=== PATIENT | male | born 1980 | race Caucasian/White ===

== ENCOUNTER 2019-07-27 11:53 | Emergency (ER) | payer BC ==
[2019-07-27] MEDS ORDERED: Ondansetron ODT TAB* 4 MG PO ONE (13:54)
[2019-07-27] MEDS ORDERED: NS 0.9% 1000 ML** 2,000 ML IV ONE (13:54)
[2019-07-27] MEDS ORDERED: Ketorolac INJ* 30 MG/ML 1 ML VIAL IV ONE (13:54)
--- NOTE | 2019-07-27 13:55 | ED ---
Headache - HPI Summary HPI Summary: The patient is a 38 y/o M presenting to [facility] with a chief complaint of two sudden onset severe occipital headaches occurring around 1130am on 07/25/19 and 1140am today 07/27/19 with sudden onset, at work. He reports that he had been at a wedding in [place], [place] over this past week and had more alcohol than usual on 07/23/19 and 07/24/19. He went to bed at 0400 on 07/25/19, and then woke up at [address] back to [place]. During the drive, he had an abrupt onset occipital headache about 4 hours after starting to drive, so his was driving instead, and he had to hold his head for about 1.5 hours before the pain started to subside with Ibuprofen use. The pain continued throughout the day and into the next to which he was continuing use of Ibuprofen for pain control, with last use at 1600 yesterday until today when he had another sudden onset occipital LINDSAY at 1140am. 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 He came to the ED soon after, as the pain continued. Currently, his pain has decreased to 3/10 in severity. The pain radiates from the occipital region into the posterior neck, resulting in stiffness and soreness. He denies any visual changes including blurred vision, photophobia, loss of vision, or diplopia. He also denies sinus congestion or drainage, dental pain, generalized weakness, or slurred speech. 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 Since then, the back pain has gradual been alleviated throughout the following week with use of Ibuprofen and a backup administrative coordinator, and there is not any pain with flexion, but now he is experiencing the abrupt headaches with neck pain. He has experienced headaches previously but not to this severity. He notes that he had been going to a chiropractor but hasn't been there since spring 2019. He has rx for Metoprolol without official dx of HTN so he does not take the medication. PMHx: PACs, GERD. Fhx of sudden age 34 in grandmother with unknown dx. Nonsmoker , rare EtOH, no substance use. Vital signs while in room: HR 98 bpm, BP 152/99 mmHg, O2 sat 94% [1405] Second set of vital signs while in room: HR 94 bpm, BP 152/106 mmHg, O2 sat 92% [1415] Home Medications Medication Instructions Recorded Confirmed Type Multivitamin 1 tab PO DAILY 07/27/19 07/27/19 History Omeprazole CAP (NF) 40 mg PO DAILY 07/27/19 07/27/19 History Probiotic 1 cap PO DAILY 07/27/19 07/27/19 History Vitamin C TAB* 1,000 mg PO DAILY 07/27/19 07/27/19 History - History Of Current Complaint Chief Complaint: EDHeadache Stated Complaint: SEVERE HEADACHES PER PT Time Seen by Provider: 07/27/19 14:05 Hx Obtained From: Patient Onset/Duration: Sudden Onset, Started hours ago - most recent episode at 1140 , Still Present Initially Headache Was: "Worst Headache Ever", Initial Pain Scale(0-10)= - 9-10 , Severe Currently Pain Is: Current Pain Scale(0-10)= - 3, Mild Timing: Constant, Hours Character: Sharp Location of Headache: Occipital Radiates to: posterior neck Aggravating Factor: Nothing Allevating Factors: Position Change - holding head, Other (Noted In Comments) - Ibuprofen with mild relief Associated Signs And Symptoms: Neck Pain, Neck Stiffness, Other (Noted In Comments) - Negative: visual changes (photophobia, blurred vision, loss of vision, dipolopia), sinus congestion or drainge, dental pain, current back pain , nausea - Risk Factors SAH Risk Factors: Family History - possibly grandmother at age 34 - Allergies/Home Medications Allergies/Adverse Reactions: Allergies Allergy/AdvReac Type Severity Reaction Status Date / Time No Known Allergies Allergy Verified 07/27/19 13:39 Home Medications: Home Medications Multivitamin 1 tab PO DAILY 07/27/19 [History Confirmed 07/27/19] Omeprazole CAP (NF) 40 mg PO DAILY 07/27/19 [History Confirmed 07/27/19] Probiotic 1 cap PO DAILY 07/27/19 [History Confirmed 07/27/19] Vitamin C TAB* 1,000 mg PO DAILY 07/27/19 [History Confirmed 07/27/19] PMH/Surg Hx/FS Hx/Imm Hx Previously Healthy: No Endocrine/Hematology History: Denies: Hx Diabetes Cardiovascular History: Reports: Hx Hypertension - has Metoprolol prescribed but PCP told him he doesn't have to take it , Other Cardiovascular Problems/ Disorders - PACs GI History: Reports: Hx Gastroesophageal Reflux Disease - controlled with Omeprazole Sensory History: Denies: Hx Deafness Opthamlomology History: Denies: Hx Legally Blind EENT History: Denies: Hx Deafness - Surgical History Surgical History: None Surgery Procedure, Year, and Place: none Infectious Disease History: No Infectious Disease History: Denies: Traveled Outside the [place] in Last 30 Days - Family History Known Family History: Positive: Other - grandmother had sudden at age 34 with unknown dx - Social History Occupation: Employed Full-time Lives: With Family Alcohol Use: Rare Alcohol Amount: wedding past weekend Hx Substance Use: No Substance Use Type: Reports: None Hx Tobacco Use: No Smoking Status (MU): Never Smoked Tobacco Review of Systems Constitutional: Negative Positive: Other - Negative: vision loss. Negative: Photophobia, Blurred Vision , Diplopia Positive: Other - Negative: sinus congestion or drainage. Negative: Dental Pain Cardiovascular: Negative Respiratory: Negative Negative: Nausea Positive: Other - Positive: neck stiffness secondary to LINDSAY; Negative: back pain Skin: Negative Positive: Headache - occipital radiating to posterior neck. Negative: Weakness , Slurred Speech Psychological: Normal All Other Systems Reviewed And Are Negative: Yes Physical Exam - Summary Physical Exam Summary: Appearance: Well-appearing, moderate pain distress, well-nourished Skin: Warm, color reflects adequate perfusion, dry Head: Normal Head/Face inspection, atraumatic, no sinus tenderness Eyes: Conjunctiva clear, PERRL 3mm, EOMI, no nystagmus ENT: Normal inspection, pharynx clear, no redness, no uvular edema, no tonsillar exudates, no sinus tenderness Neck: Supple, no nodes, no JVD, paraspinous muscles tender Respiratory: Lungs clear, normal breath sounds, no respiratory distress Cardio: RRR, No murmur, pulses normal, brisk capillary refill Abdomen: Soft, nontender Bowel sounds: Present Musculoskeletal: Strength Intact/ROM intact, no calf tenderness, no edema. Psychological: Normal Neuro: A&O x3, CN II-XII intact, motor function 5/5, sensation intact, cerebellar normal, GCS: 15, NIH 0 Triage Information Reviewed: Yes Vital Signs On Initial Exam: Initial Vitals Temp Pulse Resp BP Pulse Ox 98 F 106 20 129/108 97 07/27/19 11:55 07/27/19 11:55 07/27/19 11:55 07/27/19 11:55 07/27/19 11:55 Vital Signs Reviewed: Yes - Kristen Coma Scale Best Eye Response: 4 - Spontaneous Best Motor Response: 6 - Obeys Commands Best Verbal Response: 5 - Oriented Coma Scale Total: 15 Procedures - Sedation Patient Received Moderate/Deep Sedation with Procedure: No Diagnostics - Vital Signs Vital Signs Temp Pulse Resp BP Pulse Ox 07/27/19 11:55 98 F 106 20 129/108 97 - Laboratory Result Diagrams: 07/27/19 14:05 07/27/19 14:05 Lab Statement: Any lab studies that have been ordered have been reviewed, and results considered in the medical decision making process. - CT Brain CT CT Interpretation Completed By: Radiologist Summary of CT Findings: Impression: No acute intracranial pathology. ED physician has reviewed this report. Head/Neck CTA CT Interpretation Completed By: Radiologist Summary of CT Findings: Impression: 1. Limited study. 2. Within the limitations of the study, there is no appreciable aneurysm, vascular malformation, occlusion , or stenosis of the visualized intracranial circulation. 3. No internal carotid artery stenosis by nascet criteria. 4. 2.1 cm right thyroid nodule the [employer] Incidental Thyroid Findings Committee recommends thyroid ultrasound for incidental nonsuspicious thyroid nodules greater than or equal to 1.5 cm in size for the patient over the age of 35. ED physician has reviewed this report. Re-Evaluation - Re-Evaluation First Eval Re-Evaluation Time: 14:35 Change: Improved Comment: Pt's LINDSAY, BP improved after ketorolac, ondansetron IV and metoprolol 2.5mg IV. We discussed plan for Head/Neck CTA after speaking with Dr. Holley from neurology. If no aneurysm on CTA and since pt is presenting withing 6 hrs of sxs, and no neuro deficit, and LINDSAY is improving SAH is unlikely, as discussed with Dr. Holley. Headache Course/Dx - Course Course Of Treatment: Pt medications reviewed this visit. Nurses notes reviewed. Allergies noted. High blood pressure noted. Pt is a 38 y/o M with cc of two episodes of sudden onset occipital headaches that radiated into the neck with first episode on 07/25/19 last for about 1.5 hours before beginning to subside on 07/26/19 and completely resolve with ibuprofen, before returning with another sudden onset headache today, the worst headache of his life, at 1140 at work. Reports FHx of sudden in grandmother at age 34 with unknown dx. Upon physical exam, the patient c/o occipital LINDSAY, is well-appearing with moderate pain distress, tenderness in the paraspinous muscles, PERRL, EOMI, no sinus tenderness, and a clear pharynx without redness, uvular edema, or tonsillar exudates, and a normal neurologic exam. Blood work without any significant abnormalities. He is administered fluids, Metoprolol 2.5mg IV for hypertension and tachycardia as well as Toradol 30mg IV for pain and zofran 4mg IV. Brain CT impression is negative for intracranial pathology. I discussed the patients case with Dr. Holley, neurology, and he recommends Head/Neck CTA, and he evaluated the patient in the ED. Head/Neck CTA impression is positive for right thyroid nodule but negative for appreciable aneurysm, vascular malformation, occlusion, stenosis of the visualized intracranial circulation, internal carotid artery stenosis. Dr. Holley believes that the patient has experienced a primary exertional headache, and that SAH is excluded, and he recommends an outpatient MRI with Dr. Gutierrez, neurology in [place], since pt is from [place]. Pt is advised to take his metoprolol as prescribed by Dr. Lunsford, his comparative sociology professor. Pt will also follow up with his PCP DOMINGUEZ Davis. Pt's pain is controlled at the time of dischage. The patient understands and agrees with this plan. - Diagnoses Differential Diagnosis/HQI/PQRI: CVA, Meningitis, Subarachnoid Hemorrhage Provider Diagnoses: Primary exertional headache, Right thyroid nodule, Poorly-controlled hypertension - Physician Notifications Discussed Care Of Patient With: Dario Holley - neurology Time Discussed With Above Provider: 14:21 Instructed by Provider To: Other - Dr. Holley recommends Head/Neck CTA. After consulting on the patient, Dr. Holley believes the patient has suffered from a primary external headache and recommends outpatient MRI with Dr. Gutierrez, neurology, at [facility]. - Critical Care Time Critical Care Time: 30-74 min - 30mins, considering and excluding SAH in pt with sudden onset, worst headache of his life, and hx sudden at age 34 in his grandmother, with testing with CT and CTA, treatment, and neurology consult. Discharge ED - Sign-Out/Discharge Documenting (check all that apply): Patient Departure - Patient will be discharged home. Patient Received Moderate/Deep Sedation with Procedure: No - Discharge Plan Condition: Stable Disposition: HOME Prescriptions: oxyCODONE/Acetamin 5/325 MG* [Percocet 5/325 TAB*] 1 tab PO Q6H PRN #6 tab MDD 4 PRN Reason: Pain - Severe Patient Education Materials: Acute Headache (ED), Thyroid Nodules (ED), Hypertension (ED) Referrals: Glenroy Berg PA [Primary Care Provider] - 2 Days Shakila CHRISTIANSON,Rikki Samuel [Medical Doctor] - 1 Day Additional Instructions: Dr. Holley from neurology who you saw today believes that you have a primary exertional headache at this time. Please call Dr. Jhaveri from neurology in [facility] at [phone] to schedule an outpatient MRI following today's visit. We have given copies of your CT brain and CTA head and neck and also a disc. Please bring these to Dr. Jhaveri when you see him. Your labs will print out with these papers. Your blood pressure was very elevated while in the ER, with all readings with diastolic numbers greater than 100. You were given metoprolol 2.5mg IV with minimal effect. Dr. Lam states you need to take the metoprolol that Dr. Lunsford prescribed. This elevated blood pressure is likely contributing to your headache. You also have a thyroid nodule on the CTA of your neck. This needs definite follow up as recommended in the report. Glenroy Berg will need to follow up on this. Your thyroid levels were still pending at the time of discharge, and we will contact you if they are abnormal. Return to the emergency department for any new or worsening symptoms. - Billing Disposition and Condition Condition: STABLE Disposition: Home - Attestation Statements Document Initiated by Scribe: Yes Documenting Scribe: Juliann Finnegan Provider For Whom Patricia is Documenting (Include Credential): Dr. Heaven Lam MD Scribe Attestation: I, Juliann Finnegan, scribed for Dr. Heaven Lam MD on 09/11/19 at 1533. Scribe Documentation Reviewed: Yes Provider Attestation: The documentation as recorded by the deonibe, Juliann Finnegan accurately reflects the service I personally performed and the decisions made by me, Dr. Heaven Lam MD Status of Scribe Document: Viewed NIH Scale - NIH Scale Level of Consciousness: Alert/Keenly Responsive Ask Patient the Month and His/Her Age: Both Correct Ask Pt to Open/Close Eyes and Autism Specialist/Release Non-Paretic Hand: Both Correctly Best Gaze (Only Horizontal Eye Movement): Normal Visual Field Testing: No Visual Loss Facial Paresis-Pt to Smile & Close Eyes or Grimace Symmetry: Normal/Symmetrical Motor Function - Right Arm: No Drift-Holds 10 Seconds Motor Function - Left Arm: No Drift-Holds 10 Seconds Motor Function - Right Leg: No Drift-Holds 10 Seconds Motor Function - Left Leg: No Drift-Holds 10 Seconds Limb Ataxia-Must be out of Proportion to Weakness Present: Absent Sensory (Use Pinprick to Test Arms/Legs/Trunk/Face): Normal Best Language (Describe Picture, Name Items): No Aphasia Dysarthria (Read Several Words): Normal Extinction and Inattention: No Abnormality Total Score: 0
[2019-07-27] MEDS ORDERED: Metoprolol Tartrate IV* 1 MG/ML 5 ML VIAL IV ONE (14:17)
[2019-07-27 14:26] LABS: ABS Lymphocytes 0.9 10^3/ul (1.0-4.8); ABS Monocytes 0.4 10^3/ul (0-0.8); ABS Neutrophils 7.2 10^3/ul (1.5-7.7); Eosinophil % 0.3 %; Hematocrit 46 % (42-52); Hemoglobin 16.1 g/dL (14.0-18.0); Lymphocyte % 10.8 %; Mean Corpuscular HGB Conc 35 g/dL (31-36); Mean Corpuscular Hemoglobin 30 pg (27-31); Mean Corpuscular Volume 87 fL (80-94); Mean Platelet Volume 10.1 fL (7.4-10.4); Platelet Count 164 10^3/uL (150-450); Red Blood Count 5.31 10^6 /uL (4.18-5.48); Red Cell Distribution Width 13 % (10-15); White Blood Count 8.6 10^3/uL (3.5-10.8)
[2019-07-27 15:06] LABS: INR 0.93 (0.82-1.09)
[2019-07-27 15:20] LABS: Albumin 4.5 g/dL (3.2-5.2); Albumin/Globulin Ratio 1.7 (1-3); BUN/Creatinine Ratio 16.7 (8-20); C Reactive Protein 2.02 mg/L (<8.01); Calcium 10.4 mg/dL (8.6-10.3); EGFR African American 106.1 (>60); EGFR Non-African American 87.7 (>60); Globulin 2.7 g/dL (2-4); Magnesium 2.1 mg/dL (1.9-2.7); Potassium 3.9 mmol/L (3.5-5.0); Total Bilirubin 0.4 mg/dL (0.2-1.0); Total Protein 7.2 g/dL (6.4-8.9)
[2019-07-27] MEDS ORDERED: Iohexol 350* (CONTRAST) 500 ML MDV IV ONE (15:49)
[2019-07-27 17:30] LABS: TSH (Thyroid Stimulating Horm) 0.78 mcIU/mL (0.34-5.60)
[2019-07-27 17:32] LABS: Free T4 1.01 ng/dL (0.61-1.12)
[2019-07-27 17:40] VITALS: BP 138/88
[2019-07-27 18:23] LABS: Erythrocyte Sed Rate 4 mm/Hr (0-14)
--- NOTE | 2019-07-27 19:04 | CONS ---
NEUROLOGY CONSULTATION NOTE: DATE OF CONSULT: 07/27/19 CONSULTING PROVIDER: Dr. Lam. REASON FOR CONSULT: Headache. CHIEF COMPLAINT: Headache. HISTORY OF PRESENT ILLNESS: Mr. Cruz is a 38-year-old fairly healthy man with no past medical history except for GERD, who presented to [facility] ER today with a new onset of headache. The patient has had a similar headache approximately 9 years ago. He stated that at that time he was having sexual intercourse with his spouse when he developed severe headache. This occurred again last Friday. Right before orgasm, the patient developed severe bioccipital sudden- onset headache. The headache lasted for approximately 20 minutes. The headache subsided, but he still did not feel right for approximately all throughout Friday. The patient was at work today when he noticed another sudden-onset occipital headache at 11:40 a.m. 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 He was stressed out. He has many responsibilities. He stated that the headache was 9/10 in severity, mostly a dull pain in the occipital region with sharp pain in the frontal region. He denied any photophobia. He felt slightly nauseated. Coughing, sneezing, or straining did not exacerbate the pain. He denied any focal weakness or paresthesias. He denied any slurred speech. In the ED, he had a CT head without contrast that showed no acute intracranial abnormality. There is a small area of hypodensity in the right occipital region that is suspicious for an enlarged ventricle or a previous remote infarct in that area. A CTA head and neck was also recommended for which there was no evidence of aneurysm or intracranial/carotid stenosis/occlusion. Of note, the patient has not been sleeping well since 07/23/19 as he was attending a wedding in [place], [place] and was not sleeping well. NIH Stroke Scale of 0. The patient also complains of mild chronic pain for the last 2 weeks. He feels like he was hit by a lightning in the low back region. He denied any radiating pain to the lower extremities. He denied any impairment in his bowel or bladder function. The pain is on and off for the last 2 weeks. He has been using some exercises for his low back and doing some stretches, which has relieved his pain significantly. PAST MEDICAL HISTORY: PACs and GERD. MEDICATIONS: Omeprazole. ALLERGIES: No known drug allergies. FAMILY HISTORY: His grandmother of sudden after having a headache. SOCIAL HISTORY: The patient is . He has 2 children by the age of 3 and 8 months. He is a nonsmoker. He rarely drinks alcohol. He denied any substance abuse. REVIEW OF SYSTEMS: A 14-point review of systems was obtained and otherwise negative except for what was mentioned in the HPI. PHYSICAL EXAM: Vitals: Initially, his blood pressure was 129/108, respiratory rate of 20, pulse ox of 97%, pulse rate of 106, temperature of 98.0. General: Well-nourished, well-developed man, in no acute distress. He appears slightly anxious. Head: Atraumatic, normocephalic without obvious abnormality. Neck is supple and symmetrical with no carotid bruits, no nuchal rigidity. Negative occipital notch tenderness. There is no tenderness to the superficial temporal arteries. Eyes: Conjunctivae/corneas are clear. Funduscopic examination did not reveal any hemorrhage. The disc margin is sharp. Cardiovascular: Regular rate and rhythm with normal S1, S2. Respiratory: Clear to auscultation bilaterally. No wheezing or rhonchi. Extremities: Normal range of motion with no cyanosis or hammertoes. Skin: No skin lesions or lacerations. Psych: Affect is broad, normal mood. Neurological Examination: Mental Status: Awake , alert, and oriented to person, place, time, and general circumstances. Speech and language including expression, repetition, and comprehension were assessed and found to be normal. Cranial Nerves: Pupils are equal, round, and reactive to light. Extraocular muscles are intact. No facial asymmetry. Tongue is symmetrical and midline with no atrophy or fasciculation. Motor Examination: 5/5 strength in the upper and lower extremities bilaterally. Reflexes 2+ throughout upper and lower extremities including the ankles. Flexor plantar response. Sensation is intact to light touch throughout. Coordination: Normal [id number] and [id number] testing. Gait: Normal stance and no ataxia. ASSESSMENT AND RECOMMENDATIONS: Mr. Tomer Cruz is a 38-year-old man with history of primary exertion headache mostly related to sexual intercourse, who developed headache during intercourse on Friday and another headache today. The clinical examination shows no evidence of focal neurological deficits. Funduscopic examination is unremarkable. CT head and CTA head and neck are unremarkable with a questionable finding of hypodensity in the right occipital region that correlates with more of extension of the right occipital horn rather than a previous stroke. Overall, I suspect the patient has a primary exertional headache that most likely was triggered by stress as well as recent sexual activity. We have excluded a SAH given that there is no cerebral aneurysm on the CTA and given that the headache started within the last 6 hours of his symptom onset, it is unlikely to be subarachnoid hemorrhage. Treatment is usually NSAIDs such as indomethacin. However, given his history of premature atrial contractions/premature ventricular contractions, most recent headaches as well as underlying stressors, I think he would do better with propranolol 20 mg nightly and he can increase to 20 mg twice daily. I still would advise the patient to follow up with a neurologist and obtain an MRI of the brain with and without contrast to evaluate for secondary causes of headache , one being demyelinating disease. I also encouraged the patient to come back immediately to the ER if the headache severity reoccurs or he has other neurological symptoms such as focal weakness or paresthesias. Currently, the patient's headache severity is 2/10 and he is not in need of any pain medications to relieve the pain. I have provided Dr. Rikki Jhaveri's number given the patient lives in [place] and he should follow up with a neurologist in that area. Dr. Jhaveri can follow up with the patient within 3 to 4 weeks. [id number]/[facility] #: [id number] RASHAD
== END 2019-07-27 17:39 | disposition home or self-care (01) ==
LOC: ED 11:53
DX: G44.84 Primary exertional headache (principal); E04.1 Nontoxic single thyroid nodule; I10 Essential (primary) hypertension; M54.2 Cervicalgia; M43.6 Torticollis; K21.9 Gastro-esophageal reflux disease without esophagitis
CPT/HCPCS: 36415; 70450; 70496; 70498; 80053; 83735; 84439; 84443; 85025; 85610; 85652; 86140; 96361; 96374; 99285; A9270-GY; J3490; Q9967